=== PATIENT | male | born 1960 | race Caucasian/White ===

== ENCOUNTER 2018-05-05 00:57 | Emergency (ER) | payer MEDICARE, OTHER ==
[~2018-05-05] VITALS: Wt 127.0 kg
--- NOTE | ~2018-05-05 | EKG ---
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
[~2018-05-05 00:57] MED LIST: AMLODIPINE10 MG PO; BP MEDS; CATAPRES0.1 MG PO; CLINDAMYCIN HC300 MG PO; COREG25 MG PO; DIABETA5 MG PO; DM MED; Ecotrin325 MG PO; HYDROCHLOROTHIA25 MG PO; JANUVIA100 MG PO; LISINOPRIL20 MG PO; LISINOPRIL40 MG PO; METFORMIN1000 MG PO; MICRO-K10 MEQ PO; NEURONTIN100 MG PO; NKHM; NOVOLOG 70/30 M10 ML SC; PRILOSEC20 MG PO; TYLENOL ES500 MG PO; VICODIN 5/500 505 MG PO; ZOCOR40 MG PO; ZOFRAN4 MG PO; ZOLOFT50 MG PO
[2018-05-05 01:38] LABS: BASO % 0.2 % (0.0-1.0); HEMATOCRIT 44.6 % (42.0-52.0); HEMOGLOBIN 13.5 g/dl (14.0-18.0); LYMPH # 1.5 10*3/uL (1.3-4.4); LYMPH % 6.7 % (27.0-41.0); MEAN CELL VOLUME 89.4 fl (80.0-94.0); MEAN CORPUSCULAR HGB 27.1 pg (27.0-31.0); MEAN CORPUSCULAR HGB CONC 30.3 g/dl (33.0-37.0); MEAN PLATELET VOLUME 12.5 fl (9.6-12.3); MONO % 4.6 % (3.0-9.0); NEUT # 19.6 10*3/uL (2.3-7.9); NEUT % 87.9 % (47.0-73.0); PLATELET COUNT AUTOMATED 407 10*3/uL (130-400); RED BLOOD COUNT 4.99 10*6/uL (4.50-5.90); RED CELL DISTRI WIDTH 14.5 % (0-14.5); WHITE BLOOD COUNT 22.3 10*3/uL (4.8-10.8)
[2018-05-05 01:46] LABS: INTERNATIONAL NORM RATIO 1.1 (2.0-3.5)
[2018-05-05 01:55] LABS: ALBUMIN 3.3 gm/dl (3.1-4.5); CREATININE 2.86 mg/dL (0.70-1.30); TOTAL PROTEIN 7.8 gm/dL (6.4-8.2)
[2018-05-05 01:57] LABS: TROPONIN I 0.32 ng/ml (<0.045)
[2018-05-05 02:24] LABS: BILIRUBIN NEGATIVE (NEGATIVE); BLOOD NEGATIVE (NEGATIVE); CLARITY CLEAR (CLEAR); COLOR YELLOW (YELLOW); GLUCOSE NEGATIVE (NEGATIVE); KETONE TRACE (NEGATIVE); LEUKO ESTERASE NEGATIVE (NEGATIVE); NITRITE NEGATIVE (NEGATIVE); SPECIFIC GRAVITY >= 1.030 (1.005-1.030)
[2018-05-05 02:35] LABS: URINE AMPHETAMINES > 1000 (1000ng/ml); URINE BARBITURATES < 200 (200ng/ml); URINE BENZODIAZEPINES > 200 (200ng/ml); URINE CANNABINOIDS (THC) > 50 (50ng/ml); URINE COCAINE < 300 (300ng/ml); URINE METHADONE < 300 (300ng/ml); URINE OPIATES > 300 (300ng/ml)
[2018-05-05 02:45] LABS: URINE PHENCYCLIDINE < 25 (25ng/ml)
[2018-05-05 02:52] LABS: WBC 0-2 wbc/hpf (0-5)
[2018-05-05 02:53] LABS: BACTERIA TRACE
[2018-05-05 04:37] LABS: ABG BASE EXCESS -8.3 mmol/L (-2.0-2.0); ABG HCO3 17.2 mmol/l (22-26); ABG O2 SATURATION 98.9 % (95-97); ARTERIAL BLOOD GAS PCO2 36.1 mmHg (35-45); ARTERIAL BLOOD GAS PH 7.296 (7.35-7.45)
[2018-05-11] MEDS ORDERED: AUGMENTIN 875875 MG PO (17:22)
[2018-05-11] MEDS ORDERED: CARVEDILOL12.5 MG PO (17:22)
[2018-05-11] MEDS ORDERED: METFORMIN HYD1000 MG PO (17:23)
[2018-05-11] MEDS ORDERED: ATORVASTATIN CA40 M1 PO (17:24)
[2018-05-11] MEDS ORDERED: BREO ELLIPTA 11 EACH INH (17:25)
[2018-05-11] MEDS ORDERED: JANUVIA100 MG PO (17:26)
[2018-05-18] MEDS ORDERED: PRINIVIL20 M1 PO (16:55)
[2018-05-18] MEDS ORDERED: ASPIRIN FOR CHI81 MG PO (16:55)
[2018-05-18] MEDS ORDERED: PRILOSEC20 M1 PO (16:58)
[2018-05-19] MEDS ORDERED: Lantus SC (08:42)
[2018-05-19] MEDS ORDERED: AUGMENTIN 875875 MG PO (08:42)
== END 2018-05-05 06:50 | disposition short-term general hospital (02) ==
LOC: ED 00:57
PROVIDERS: Emergency Medicine
DX: A41.9 Sepsis, unspecified organism (principal); J18.9 Pneumonia, unspecified organism; E11.9 Type 2 diabetes mellitus without complications; J44.9 Chronic obstructive pulmonary disease, unspecified; F11.10 Opioid abuse, uncomplicated; Z79.899 Other long term (current) drug therapy; Z79.4 Long term (current) use of insulin

== ENCOUNTER 2018-06-22 14:32 | Emergency (ER) | payer MEDICARE, OTHER ==
[~2018-06-22] VITALS: Ht 175.2 cm; Wt 107.0 kg
[~2018-06-22 14:32] MED LIST changes: +ASPIRIN FOR CHI81 MG PO; +ATORVASTATIN CA40 M1 PO; +AUGMENTIN 875875 MG PO; +BREO ELLIPTA 11 EACH INH; +CARVEDILOL12.5 MG PO; +Lantus SC; +METFORMIN HYD1000 MG PO; +PRILOSEC20 M1 PO; +PRINIVIL20 M1 PO
== END 2018-06-22 15:56 | disposition home or self-care (01) ==
LOC: ED 14:32
DX: I10 Essential (primary) hypertension (principal); Z86.73 Personal history of transient ischemic attack (TIA), and cerebral infarction without residual deficits; Z79.2 Long term (current) use of antibiotics; Z79.84 Long term (current) use of oral hypoglycemic drugs; Z79.899 Other long term (current) drug therapy; Z79.82 Long term (current) use of aspirin

== ENCOUNTER → 2019-10-18 | Outpatient (CLI) | payer MEDICARE, OTHER ==
[2019-10-18 14:01] LABS: BASO # 0.1 10*3/uL (0.0-0.1); BASO % 0.7 % (0.0-1.0); EOS # 0.3 10*3/uL (0.0-0.4); EOS % 2.9 % (1.0-4.0); HEMATOCRIT 40.5 % (42.0-52.0); HEMOGLOBIN 13.1 g/dl (14.0-18.0); LYMPH # 3.1 10*3/uL (1.3-4.4); LYMPH % 29.1 % (27.0-41.0); MEAN CELL VOLUME 87.9 fl (80.0-94.0); MEAN CORPUSCULAR HGB 28.4 pg (27.0-31.0); MEAN CORPUSCULAR HGB CONC 32.3 g/dl (33.0-37.0); MEAN PLATELET VOLUME 12.1 fl (9.6-12.3); MONO # 0.5 10*3/uL (0.1-1.0); MONO % 4.7 % (3.0-9.0); NEUT # 6.7 10*3/uL (2.3-7.9); NEUT % 62.3 % (47.0-73.0); PLATELET COUNT AUTOMATED 287 10*3/uL (130-400); RED BLOOD COUNT 4.61 10*6/uL (4.50-5.90); RED CELL DISTRI WIDTH 13.4 % (0-14.5); WHITE BLOOD COUNT 10.7 10*3/uL (4.8-10.8)
[2019-10-18 14:29] LABS: POTASSIUM 4.7 mmol/L (3.5-5.1)
[2019-10-18 14:39] LABS: CREATININE 1.73 mg/dL (0.70-1.30); FREE T4 0.82 ng/dl (0.76-1.46); THYROID STIM HORMONE (HS) 1.82 uIU/ml (0.358-4.75); TOTAL PROTEIN 7.5 gm/dL (6.4-8.2)
[2019-10-18 15:19] LABS: VITAMIN D, 25-HYDROXY 31.2 ng/mL (30-100)
== END | disposition home or self-care (01) ==
LOC: LAB 13:16
PROVIDERS: Internal Medicine
DX: Z12.5 Encounter for screening for malignant neoplasm of prostate (principal); I10 Essential (primary) hypertension; E78.5 Hyperlipidemia, unspecified; E55.9 Vitamin D deficiency, unspecified; E11.9 Type 2 diabetes mellitus without complications

== ENCOUNTER → 2021-07-09 | Outpatient (CLI) | payer OTHER | END | disposition home or self-care (01) | LOC: US 07:30 → CARD 08:30 | PROVIDERS: ATTEND Internal Medicine | DX: I65.23 Occlusion and stenosis of bilateral carotid arteries (principal); R06.02 Shortness of breath ==

== ENCOUNTER → 2022-12-04 | Outpatient (CLI) | payer OTHER ==
[~2022-12-04] MED LIST changes: +APRESOLINE10 MG PO; +PROVENTIL HFA6.7 GM INH
== END | disposition home or self-care (01) ==
LOC: RAD 09:53
PROVIDERS: ATTEND Internal Medicine
DX: J44.9 Chronic obstructive pulmonary disease, unspecified (principal)

== ENCOUNTER 2022-12-09 16:21 | Inpatient (IN) | payer OTHER ==
[~2022-12-09] VITALS: Ht 172.7 cm; Wt 120.3 kg
[~2022-12-09 16:21] MED LIST changes: -APRESOLINE10 MG PO; -PROVENTIL HFA6.7 GM INH
[2022-12-09 16:31] VITALS: BP 213/85
[2022-12-09 17:00] LABS: BASO # 0.1 10*3/uL (0.0-0.1); BASO % 0.5 % (0.0-1.0); EOS # 0.3 10*3/uL (0.0-0.4); EOS % 3.1 % (1.0-4.0); HEMATOCRIT 33.6 % (42.0-52.0); LYMPH # 2.4 10*3/uL (1.3-4.4); LYMPH % 23.2 % (27.0-41.0); MEAN CELL VOLUME 83.2 fl (80.0-94.0); MEAN CORPUSCULAR HGB CONC 31.3 g/dl (33.0-37.0); MEAN PLATELET VOLUME 11.7 fl (9.6-12.3); MONO # 0.7 10*3/uL (0.1-1.0); MONO % 6.7 % (3.0-9.0); NEUT # 6.8 10*3/uL (2.3-7.9); NEUT % 66.3 % (47.0-73.0); PLATELET COUNT AUTOMATED 313 10*3/uL (130-400); RED BLOOD COUNT 4.04 10*6/uL (4.50-5.90); RED CELL DISTRI WIDTH 14.8 % (0-14.5); WHITE BLOOD COUNT 10.3 10*3/uL (4.8-10.8)
[2022-12-09 17:11] LABS: ACT PARTIAL THROMBO TIME 27.2 SECONDS (20.0-32.1); INTERNATIONAL NORM RATIO 1.1 (2.0-3.5)
[2022-12-09 17:20] LABS: POTASSIUM 4.3 mmol/L (3.4-5.1); TOTAL PROTEIN 6.8 gm/dL (6.0-8.0)
[2022-12-09 19:00] VITALS: BP 188/93
[2022-12-09 20:00] VITALS: BP 161/71
[2022-12-09] MEDS ORDERED: APRESOLINE10 MG PO (21:14)
[2022-12-09] MEDS ORDERED: PROVENTIL HFA6.7 GM INH (21:18)
[2022-12-09 21:25] VITALS: BP 154/60
[2022-12-10 08:23] VITALS: BP 147/81
[2022-12-10 08:50] VITALS: BP 179/80
[2022-12-10 12:00] VITALS: BP 168/88
[2022-12-10 16:00] VITALS: BP 165/88
[2022-12-10 20:00] VITALS: BP 166/76
[2022-12-11] VITALS: BP 156/67
[2022-12-11 07:27] LABS: BASO # 0.1 10*3/uL (0.0-0.1); BASO % 0.6 % (0.0-1.0); EOS # 0.2 10*3/uL (0.0-0.4); EOS % 2.7 % (1.0-4.0); HEMATOCRIT 34.9 % (42.0-52.0); LYMPH # 2.2 10*3/uL (1.3-4.4); LYMPH % 24.7 % (27.0-41.0); MEAN CELL VOLUME 83.3 fl (80.0-94.0); MEAN CORPUSCULAR HGB 26.3 pg (27.0-31.0); MEAN CORPUSCULAR HGB CONC 31.5 g/dl (33.0-37.0); MEAN PLATELET VOLUME 12.3 fl (9.6-12.3); MONO # 0.6 10*3/uL (0.1-1.0); MONO % 7.2 % (3.0-9.0); NEUT # 5.7 10*3/uL (2.3-7.9); NEUT % 64.5 % (47.0-73.0); PLATELET COUNT AUTOMATED 303 10*3/uL (130-400); RED BLOOD COUNT 4.19 10*6/uL (4.50-5.90); RED CELL DISTRI WIDTH 14.7 % (0-14.5); WHITE BLOOD COUNT 8.8 10*3/uL (4.8-10.8)
[2022-12-11 08:00] VITALS: BP 186/82
[2022-12-11 08:38] LABS: POTASSIUM 3.9 mmol/L (3.4-5.1)
[2022-12-11 12:00] VITALS: BP 137/69
[2022-12-11 16:00] VITALS: BP 156/64
[2022-12-11 20:00] VITALS: BP 176/78
[2022-12-12] VITALS: BP 158/73
[2022-12-12 06:37] LABS: POTASSIUM 3.8 mmol/L (3.4-5.1)
[2022-12-12 08:00] VITALS: BP 189/77
[2022-12-12 08:40] VITALS: BP 168/88
[2022-12-12 12:00] VITALS: BP 160/65
[2022-12-12] MEDS ORDERED: COREG25 MG PO (15:12)
[2022-12-12 16:00] VITALS: BP 165/70
== END 2022-12-12 18:50 | disposition home or self-care (01) | DRG 291 ==
LOC: ED 16:21 → 5E 18:45 → EDHOLD 18:45 → 5E 12-10 08:48
PROVIDERS: Emergency Medicine; ADMIT Internal Medicine; ATTEND Internal Medicine
PROC: 0HBRXZZ Excision of Toe Nail, External Approach (ICD-10-PCS; principal; 2022-12-11)
PROC: 0HBRXZZ Excision of Toe Nail, External Approach (ICD-10-PCS; 2022-12-11)
PROC: 0HBRXZZ Excision of Toe Nail, External Approach (ICD-10-PCS; 2022-12-11)
PROC: 0HBRXZZ Excision of Toe Nail, External Approach (ICD-10-PCS; 2022-12-11)
PROC: 0HBRXZZ Excision of Toe Nail, External Approach (ICD-10-PCS; 2022-12-11)
PROC: 0HBRXZZ Excision of Toe Nail, External Approach (ICD-10-PCS; 2022-12-11)
PROC: 0HBRXZZ Excision of Toe Nail, External Approach (ICD-10-PCS; 2022-12-11)
PROC: 0HBRXZZ Excision of Toe Nail, External Approach (ICD-10-PCS; 2022-12-11)
PROC: 0HBRXZZ Excision of Toe Nail, External Approach (ICD-10-PCS; 2022-12-11)
PROC: 0HBRXZZ Excision of Toe Nail, External Approach (ICD-10-PCS; 2022-12-11)
DX: I13.0 Hypertensive heart and chronic kidney disease with heart failure and stage 1 through stage 4 chronic kidney disease, or unspecified chronic kidney disease (principal); I50.31 Acute diastolic (congestive) heart failure; N17.9 Acute kidney failure, unspecified; I69.351 Hemiplegia and hemiparesis following cerebral infarction affecting right dominant side; Z68.41 Body mass index [BMI] 40.0-44.9, adult; E78.2 Mixed hyperlipidemia; E11.65 Type 2 diabetes mellitus with hyperglycemia; K21.9 Gastro-esophageal reflux disease without esophagitis; E66.01 Morbid (severe) obesity due to excess calories; N18.32 Chronic kidney disease, stage 3b; E11.22 Type 2 diabetes mellitus with diabetic chronic kidney disease; B35.1 Tinea unguium

== ENCOUNTER → 2024-04-13 | Outpatient (CLI) | payer OTHER ==
[~2024-04-13] MED LIST changes: +APRESOLINE10 MG PO; +PROVENTIL HFA6.7 GM INH
== END | disposition home or self-care (01) ==
LOC: US 09:30
PROVIDERS: ATTEND Internal Medicine
DX: N28.1 Cyst of kidney, acquired (principal); N18.32 Chronic kidney disease, stage 3b

== ENCOUNTER 2025-01-18 11:15 | Observation (INO) | payer OTHER ==
[~2025-01-18] VITALS: Ht 170.2 cm; Wt 123.0 kg
[2025-01-18 11:28] VITALS: BP 205/79
[2025-01-18 11:45] LABS: BASO % 0.5 % (0.0-1.0); EOS # 0.3 10*3/uL (0.0-0.4); EOS % 3.8 % (1.0-4.0); HEMATOCRIT 35.4 % (42.0-52.0); MEAN CELL VOLUME 86.3 fl (80.0-94.0); MEAN CORPUSCULAR HGB 26.6 pg (27.0-31.0); MEAN CORPUSCULAR HGB CONC 30.8 g/dl (33.0-37.0); MEAN PLATELET VOLUME 11.1 fl (9.6-12.3); MONO # 0.5 10*3/uL (0.1-1.0); MONO % 6.8 % (3.0-9.0); NEUT # 4.9 10*3/uL (2.3-7.9); NEUT % 65.7 % (47.0-73.0); PLATELET COUNT AUTOMATED 308 10*3/uL (130-400); WHITE BLOOD COUNT 7.5 10*3/uL (4.8-10.8)
[2025-01-18 12:04] LABS: POTASSIUM 4.3 mmol/L (3.4-5.1)
[2025-01-18 13:00] VITALS: BP 174/68
[2025-01-18] MEDS ORDERED: MIRTAZAPINE15 M2 PO (13:19)
[2025-01-18] MEDS ORDERED: FUROSEMIDE40 MG PO (13:20)
[2025-01-18] MEDS ORDERED: HYDRALAZINE HYD50 MG PO (13:21)
[2025-01-18] MEDS ORDERED: METFORMIN HYD1000 MG PO (13:23)
[2025-01-18] MEDS ORDERED: DEXTROSE 10 % IN WATER 250 ML IV PRN (13:40)
[2025-01-18] MEDS ORDERED: SODIUM CHLORIDE 0.9% 1,000 ML IV SCH (13:40)
[2025-01-18] MEDS ORDERED: hydrALAZINE hydrochloride 50 MG TAB PO SCH ×2 (13:50→22:00)
[2025-01-18] MEDS ORDERED: CARVEDILOL 25 MG TAB PO SCH ×2 (14:45→22:00)
[2025-01-18 16:00] VITALS: BP 141/62
[2025-01-18] MEDS ORDERED: INSULIN REGULAR, HUMAN 1 UNIT/0.01 ML SC SCH (16:30)
[2025-01-18] MEDS ORDERED: ATORVASTATIN CALCIUM 40 MG TABLET PO SCH (18:00)
[2025-01-18 20:00] VITALS: BP 156/64
[2025-01-18] MEDS ORDERED: ACETAMINOPHEN 325 MG TAB PO PRN (23:40)
[2025-01-19] VITALS: BP 170/71
[2025-01-19 06:15] LABS: POTASSIUM 3.9 mmol/L (3.4-5.1)
[2025-01-19 08:00] VITALS: BP 153/64
[2025-01-19] MEDS ORDERED: GLIMEPIRIDE2 MG PO (08:50)
[2025-01-19] MEDS ORDERED: Mirtazapine 15 MG TAB PO SCH ×2 (10:00→22:00)
[2025-01-19 12:00] VITALS: BP 145/63
[2025-01-19 13:09] LABS: BILIRUBIN Negative (Negative); BLOOD Negative (Negative); CLARITY Clear (Clear); COLOR Yellow (Yellow); GLUCOSE Negative (Negative); KETONE Negative (Negative); LEUKO ESTERASE Negative (Negative); NITRITE Negative (Negative); SPECIFIC GRAVITY 1.015 (1.001-1.030); UROBILINOGEN 0.2 E.U./dl (0.0-1.0)
[2025-01-19 13:33] LABS: BACTERIA 1+; EPITHELIAL CELLS 0-2; WBC 0-2 wbc/hpf (0-5)
[2025-01-19 13:39] LABS: VITAMIN D, 25-HYDROXY 64.8 ng/mL (30-100)
[2025-01-20] MEDS ORDERED: GLIMEPIRIDE 2 MG TAB PO SCH (07:30)
== END 2025-01-19 14:35 | disposition home or self-care (01) ==
LOC: ED 11:15 → 5E 12:17 → EDHOLD 12:17 → 5E 13:02
PROVIDERS: Emergency Medicine; Internal Medicine Nephrology; Nurse Practitioner Family; ADMIT Internal Medicine; ATTEND Internal Medicine
DX: I12.9 Hypertensive chronic kidney disease with stage 1 through stage 4 chronic kidney disease, or unspecified chronic kidney disease (principal); E11.22 Type 2 diabetes mellitus with diabetic chronic kidney disease; N18.30 Chronic kidney disease, stage 3 unspecified; N17.0 Acute kidney failure with tubular necrosis; E78.2 Mixed hyperlipidemia; K21.9 Gastro-esophageal reflux disease without esophagitis; Z79.84 Long term (current) use of oral hypoglycemic drugs; Z79.899 Other long term (current) drug therapy

== ENCOUNTER 2025-04-02 08:12 | Emergency (ER) | payer OTHER ==
[~2025-04-02] VITALS: Wt 124.3 kg
[~2025-04-02 08:12] MED LIST changes: +FUROSEMIDE40 MG PO; +GLIMEPIRIDE2 MG PO; +HYDRALAZINE HYD50 MG PO; +MIRTAZAPINE15 M2 PO
[2025-04-02] MEDS ORDERED: GLIMEPIRIDE4 M1 PO (08:23)
[2025-04-02] MEDS ORDERED: ZESTRIL20 MG PO (08:24)
[2025-04-02] MEDS ORDERED: HYDRALAZINE HYD50 MG PO (08:24)
[2025-04-02] MEDS ORDERED: VITAMIN D250 MC1 PO (08:24)
[2025-04-02 08:42] LABS: MEAN CELL VOLUME 85.1 fl (80.0-94.0); MEAN CORPUSCULAR HGB 26.1 pg (27.0-31.0); MEAN PLATELET VOLUME 11.4 fl (9.6-12.3); NUCLEATED RED BLOOD CELL 0.0 % (0.0-0.0); NUCLEATED RED BLOOD CELL 0.0 10*3/uL (0.0-0.0); PLATELET COUNT AUTOMATED 264 10*3/uL (130-400); RED CELL DISTRI WIDTH 13.9 % (0-14.5)
[2025-04-02 08:53] LABS: ACT PARTIAL THROMBO TIME 28.9 SECONDS (20.0-32.1)
[2025-04-02 09:03] LABS: MANUAL DIFF REFLEX YES
[2025-04-02 09:05] LABS: BUN 65.0 mg/dl (9-23); SGPT/ALT 16.0 U/L (5-49)
[2025-04-02 09:06] LABS: PLATELET SUFFICIENCY NORMAL (NORMAL)
[2025-04-02 09:15] LABS: BILIRUBIN Negative (Negative); BLOOD 2+ (Negative); CLARITY Turbid (Clear); COLOR Yellow (Yellow); KETONE Trace (Negative); LEUKO ESTERASE 3+ (Negative); NITRITE Negative (Negative); PH 5.0 (4.5-8.0); SPECIFIC GRAVITY 1.015 (1.001-1.030); UROBILINOGEN 1.0 E.U./dl (0.0-1.0)
[2025-04-02] MEDS ORDERED: SODIUM CHLORIDE 0.9% 1,000 ML IV ONE ×2 (09:20→13:15)
[2025-04-02 09:36] LABS: BACTERIA 3+; RBC TNTC rbc/hpf (0-2); WBC TNTC wbc/hpf (0-5)
== END 2025-04-02 15:02 | disposition short-term general hospital (02) ==
LOC: ED 08:12
PROVIDERS: Internal Medicine
DX: N20.0 Calculus of kidney (principal)

== ENCOUNTER → 2025-05-03 | Outpatient (CLI) | payer OTHER ==
[~2025-05-03] MED LIST changes: +GLIMEPIRIDE4 M1 PO; +VITAMIN D250 MC1 PO; +ZESTRIL20 MG PO
[2025-05-03 09:18] LABS: BUN 40.0 mg/dl (9-23)
== END | disposition home or self-care (01) ==
LOC: LAB 08:30
PROVIDERS: ATTEND Internal Medicine
DX: I10 Essential (primary) hypertension (principal)

== ENCOUNTER → 2025-05-23 | Outpatient (CLI) | payer OTHER ==
[2025-05-23 13:25] LABS: BASO # 0.0 10*3/uL (0.0-0.1); BASO % 0.5 % (0.0-1.0); EOS # 0.3 10*3/uL (0.0-0.4); EOS % 3.2 % (1.0-4.0); MEAN CELL VOLUME 83.8 fl (80.0-94.0); MEAN CORPUSCULAR HGB 25.9 pg (27.0-31.0); MEAN PLATELET VOLUME 11.4 fl (9.6-12.3); MONO # 0.5 10*3/uL (0.1-1.0); MONO % 6.2 % (3.0-9.0); NEUT # 5.5 10*3/uL (2.3-7.9); NEUT % 70.0 % (47.0-73.0); NUCLEATED RED BLOOD CELL 0.0 % (0.0-0.0); NUCLEATED RED BLOOD CELL 0.0 10*3/uL (0.0-0.0); PLATELET COUNT AUTOMATED 273 10*3/uL (130-400); RED CELL DISTRI WIDTH 14.6 % (0-14.5)
[2025-05-23 13:59] LABS: BUN 36.0 mg/dl (9-23); SGPT/ALT 16.0 U/L (5-49)
== END | disposition home or self-care (01) ==
LOC: LAB 12:35
PROVIDERS: ATTEND Internal Medicine Nephrology
DX: N13.2 Hydronephrosis with renal and ureteral calculous obstruction (principal); N18.32 Chronic kidney disease, stage 3b; E11.21 Type 2 diabetes mellitus with diabetic nephropathy; Z96.0 Presence of urogenital implants